=== PATIENT | male | born 1990 | race Caucasian/White ===

== ENCOUNTER 2017-11-16 19:36 | Emergency (ER) | payer MEDICAID ==
[~2017-11-16] VITALS: Ht 162.6 cm; Wt 74.8 kg
[2017-11-16 19:40] VITALS: BP 138/74
--- NOTE | 2017-11-16 19:40 | ER Report ---
History and Physical Time Seen By MD: 19:39 HPI/ROS CHIEF COMPLAINT: Laceration, suture removal. HISTORY OF PRESENT ILLNESS: The patient returns to the ED for suture removal. There have been no problems and no symptoms of infection. The laceration was on the face. Sutures have been in place for 7 days. Allergies: Coded Allergies: Sulfa (Sulfonamide Antibiotics) (Verified Allergy, Severe, ANAPHYLAXIS, 11/16/17) Home Meds No Active Prescriptions or Reported Meds Past Medical/Surgical History Patient has a past medical history of seizures. Patient has a surgical history of tubes in ears. Constitutional Vital Sign - Last 24 Hours 11/16/17 19:40 Temp 98.8 Pulse 96 Resp 14 B/P (MAP) 138/74 Pulse Ox 95 O2 Delivery Room Air Physical Exam General appearance: alert no distress Skin: The laceration of the face is well healing and appears to have no evidence of infection. MEDICAL DECISION MAKING: I removed the sutures. Following removal there was no reported dehiscence of the wound. Medical Decision Making ED Course/Re-evaluation ED Course Patient was admitted in exam room, history and physical were obtained. Differential diagnoses were considered. On examination patient has sutures located to the skin underneath his bottom lip. There is no erythema, no discharge, no tenderness noted. The sutures removed without any difficulties. We will go ahead and discharge patient home at this time. Patient verbalized understanding and agreement. Decision to Disposition Date: Nov 16, 2017 Decision to Disposition Time: 19:45 Depart Departure Latest Vital Signs Vital Signs Date Time Temp Pulse Resp B/P (MAP) Pulse Ox O2 Delivery O2 Flow Rate FiO2 11/16/17 19:40 98.8 96 14 138/74 95 Room Air Impression: Primary Impression: Visit for suture removal Condition: Improved Disposition: HOME OR SELF-CARE New Scripts No Active Prescriptions or Reported Meds Patient Instructions: Stitches Removal (ED) Additional Instructions: Keep area clean. Monitor for signs of infection. Take Tylenol or Ibuprofen as needed for pain. Follow up with your primary care provider with any concerns. Return to the ER with any worsening of your condition. SILVANA SHEIKH Nov 16, 2017 19:40
== END 2017-11-16 19:50 | disposition home or self-care (01) ==
LOC: ER 19:41
DX: S01.81XD Laceration without foreign body of other part of head, subsequent encounter (principal)
CPT/HCPCS: 99281